=== PATIENT | male | born 1960 | race Caucasian/White ===

== ENCOUNTER 2020-03-31 07:11 | Day surgery (SDC) | payer BC, OTHER ==
[2020-03-29 14:04] LABS: BASOPHILS % (AUTO) 1 % (0-1); EOSINOPHILS % (AUTO) 1 % (1-7); LYMPHOCYTES % (AUTO) 20 % (22-44); MEAN CORPUSCULAR HEMOGLOBIN 31.6 pg (27.5-34.5); MEAN CORPUSCULAR HGB CONC 33.9 g/dL (33.2-36.2); MEAN PLATELET VOLUME 9.4 fL (7.4-10.4); MONOCYTES % (AUTO) 8 % (2-9); NEUTROPHILS % (AUTO) 70 % (42-75); PLATELET COUNT 201 x10^3/uL (130-400); RED BLOOD COUNT 4.91 x10^6/uL (4.38-5.82); RED CELL DISTRIBUTION WIDTH 13.2 % (9.4-14.8)
[2020-03-29 14:13] LABS: INTERNATIONAL NORMALIZED RATIO 0.93 (0.93-1.1); PROTHROMBIN TIME 9.9 Seconds (9.6-11.5)
[2020-03-29 14:14] LABS: ALANINE AMINOTRANSFERASE 32 U/L (12-78); ALBUMIN 4.2 g/dL (3.4-5.0); ANION GAP 6 mmol/L (5-15); CALCIUM 9.3 mg/dL (8.5-10.1); CHLORIDE 109 mmol/L (98-107); CREATININE 0.95 mg/dL (0.7-1.3)
[2020-03-29 14:15] LABS: MD NO
[2020-03-29 14:16] LABS: ALKALINE PHOSPHATASE 80 U/L (45-117); BILIRUBIN,TOTAL 0.3 mg/dL (0.2-1.0)
[~2020-03-31] VITALS: Ht 165.1 cm; Wt 79.9 kg
[~2020-03-31 07:11] MED LIST: ALBU8.5H8 INH; ASPI81TA45 PO; BACITRACIN 50,000 UNIT ONE; BUPIVACAINE/PF 0.5% ONE; EPINEPHRINE 1 MG/ML, 1ML ONE; IBUP-1902 PO; LISI-167 PO; LISI2.5T PO; MELO15TA24 PO; ROSU20TA2 PO; THROMBIN 20,000 UNIT VIAL TP ONE
[2020-03-31 08:19] VITALS: BP 144/80
[2020-03-31] MEDS ORDERED: MIDAZOLAM 1 MG/ML, 2ML ONE (08:24)
[2020-03-31] MEDS ORDERED: LIDOCAINE-MPF 2% ,5ML ONE (08:24)
[2020-03-31] MEDS ORDERED: FENTANYL PF 250 MCG/5ML ONE (08:24)
[2020-03-31] MEDS ORDERED: PROPOFOL 10 MG/ML, 20ML ONE (08:25)
[2020-03-31] MEDS ORDERED: SUCCINYLCHOLINE 20 MG/ML, 10ML ONE (08:28)
[2020-03-31] MEDS ORDERED: CEFAZOLIN 1,000 MG ONE ×2 (08:28)
[2020-03-31] MEDS ORDERED: DEXAMETHASONE 4 MG/ML, 5ML ONE (08:28)
[2020-03-31] MEDS ORDERED: ONDANSETRON 2MG/ML, 2ML ONE (08:28)
[2020-03-31] MEDS ORDERED: CHLORHEXIDINE 15 ML UDC MM ONE (08:30)
[2020-03-31] MEDS ORDERED: LACTATED RINGERS 1,000 ML IV SCH (08:30)
[2020-03-31] MEDS ORDERED: GABAPENTIN 300 MG CAPSULE PO ONE (08:30)
[2020-03-31] MEDS ORDERED: ACETAMINOPHEN 500 MG TABLET PO ONE (08:30)
[2020-03-31] MEDS ORDERED: SCOPOLAMINE 1MG PATCH TD SCH (08:30)
[2020-03-31] MEDS ORDERED: ROCURONIUM 10 MG/ML,10ML ONE (10:10)
[2020-03-31] MEDS ORDERED: PROMETHAZINE 25 MG/ML, 1ML IVPush PRN (11:00)
[2020-03-31] MEDS ORDERED: DIAZEPAM 5 MG/ML, 2ML IVPush PRN (11:00)
[2020-03-31] MEDS ORDERED: hydrALAzine 20 MG/ML, 1ML IV PRN (11:00)
[2020-03-31] MEDS ORDERED: METHOCARBAMOL 1,000 MG in DEXTROSE 5% 100 ML IV PRN (11:00)
[2020-03-31] MEDS ORDERED: MEPERIDINE/PF 25MG/0.5ML IVPush PRN (11:00)
[2020-03-31] MEDS ORDERED: LABETALOL 5MG/ML, 20ML IV PRN (11:00)
[2020-03-31] MEDS ORDERED: ONDANSETRON 2MG/ML, 2ML IVPush PRN (11:00)
[2020-03-31] MEDS ORDERED: DIPHENHYDRAMINE 50 MG/ML, 1ML IVPush PRN (11:00)
[2020-03-31] MEDS ORDERED: OXYcodone 5 MG/5 ML ORAL.SOL UDC PO PRN ×2 (11:00→15:00)
[2020-03-31] MEDS ORDERED: FENTANYL PF 100 MCG/2ML ONE (12:00)
[2020-03-31] MEDS ORDERED: METHOCARBAMOL 1,000 MG in DEXTROSE 5% 100 ML IV ONE (12:00)
[2020-03-31] MEDS ORDERED: METHOCARBAMOL 1000MG/10 ML IVPB ONE (12:00)
[2020-03-31] MEDS: FENTANYL PF 100 MCG/2ML IV PRN ×2 (12:01→12:10)
[2020-03-31] MEDS ORDERED: OXYcodone 5 MG/5 ML ORAL.SOL UDC ONE (12:01)
[2020-03-31] MEDS ORDERED: HYDR-3248 PO (12:13)
[2020-03-31] MEDS ORDERED: METH750T87 PO (12:13)
[2020-03-31] MEDS ORDERED: hydrALAzine 20 MG/ML, 1ML ONE (12:21)
[2020-03-31] MEDS ORDERED: methylPREDNISolone *ACETATE* 40 MG/ML IM ONE (12:30)
[2020-03-31] MEDS ORDERED: HYDROmorphone 1 MG/ML, 1ML INJ ONE (12:38)
[2020-03-31] MEDS: HYDROmorphone 1 MG/ML, 1ML INJ IVPush PRN ×2 (12:40→12:45)
[2020-03-31] MEDS ORDERED: ACETAMINOPHEN 325 MG TABLET PO PRN (15:00)
== END 2020-03-31 16:56 | disposition home or self-care (01) ==
LOC: OUT 07:11 → EDSTATUS 10:00 → OUT 16:56
PROVIDERS: ATTEND Neurological Surgery
DX: M50.123 Cervical disc disorder at C6-C7 level with radiculopathy (principal); M50.023 Cervical disc disorder at C6-C7 level with myelopathy; M48.02 Spinal stenosis, cervical region; M25.78 Osteophyte, vertebrae; I10 Essential (primary) hypertension; Z20.822 Contact with and (suspected) exposure to COVID-19; Z79.01 Long term (current) use of anticoagulants; Z79.899 Other long term (current) drug therapy; Z86.718 Personal history of other venous thrombosis and embolism; Z88.8 Allergy status to other drugs, medicaments and biological substances; Z91.040 Latex allergy status
CPT/HCPCS: 22856; 36415; 71046; 72040; 80053; 85025; 85610; 85730; 93005; 95938; 95941; C1776; J0171; J0330; J0360; J0690; J1030; J1100; J1170; J2250; J2405; J2704; J2800; J3010; J7120; U0003